=== PATIENT | male | born 2000 | race Caucasian/White ===

== ENCOUNTER 2019-12-15 00:35 | Observation (INO) ==
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
[2019-12-15 01:03] LABS: ALANINE AMINOTRANSFERASE 24 Units/L (12-78); ALBUMIN 4.3 g/dL (3.4-5.0); ALKALINE PHOSPHATASE 90 Units/L (46-116); ASPARTATE AMINO TRANSFERASE 30 Units/L (15-37); BASOPHILS % (AUTO) 0.7 % (0.2-1.0); BLOOD ALCOHOL 140 mg/dL (0-19.9); BLOOD UREA NITROGEN 10 mg/dL (7-18); CALCIUM 9.3 mg/dL (8.5-10.1); CARBON DIOXIDE 28.7 mmol/L (21-32); CHLORIDE 103 mmol/L (98-107); CREATININE 1.48 mg/dL (0.70-1.30); EOSINOPHILS # (AUTO) 0.2 x10^3/uL (0.0-0.2); EOSINOPHILS % (AUTO) 2.8 % (0.9-2.9); HEMATOCRIT 45.6 % (42.0-54.0); HEMOGLOBIN 15.4 g/dL (13.5-18.0); LYMPHOCYTES % (AUTO) 31.6 % (21.0-51.0); MEAN CORPUSCULAR HEMOGLOBIN 32.2 pg (27.0-34.0); MEAN CORPUSCULAR HGB CONC 33.8 g/dL (33.0-35.0); MEAN CORPUSCULAR VOLUME 95.2 fL (80.0-100.0); MEAN PLATELET VOLUME 8.9 fL (7.4-11.0); MONOCYTES # (AUTO) 0.5 x10^3/uL (0.3-0.8); MONOCYTES % (AUTO) 7.4 % (0.0-13.0); NEUTROPHILS # (AUTO) 3.7 x10^3/uL (2.2-4.8); NEUTROPHILS % (AUTO) 57.5 % (42.0-75.0); PLATELET COUNT 265 X10^3/uL (150.0-450.0); RED BLOOD COUNT 4.79 X10^6/uL (4.7-6.0); SODIUM 143 mmol/L (136-145); TOTAL PROTEIN 8.7 g/dL (6.4-8.2); WHITE BLOOD COUNT 6.5 X10^3/uL (3.6-10.0); eGFR NON BLACK RACES > 60 (>60)
[2019-12-15 01:10] LABS: SALICYLATE 4.8 mg/dL (2.8-20)
[2019-12-15] MEDS ORDERED: ANCEF VIAL 1 GRAM IVP ONE (01:13)
[2019-12-15] MEDS ORDERED: ADACEL or BOOSTRIX TDaP VACCINE IM ONE ×2 (01:18→01:36)
[2019-12-15] MEDS ORDERED: ANCEF VIAL 1 GRAM ONE ×2 (01:36→09:02)
[2019-12-15] MEDS ORDERED: NS 100 ML IV 100 ML IV ONE (01:40)
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
[2019-12-15] MEDS ORDERED: NS 1000 ML 1,000 ML IV SCH ×2 (03:00→04:00)
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
[2019-12-15] MEDS ORDERED: ZOFRAN INJ 4 MG VIAL IVP ONE (03:04)
[2019-12-15] MEDS ORDERED: MORPHINE SULFATE INJ 2 MG INJ IVP ONE (03:04)
[2019-12-15] MEDS ORDERED: MORPHINE SULFATE INJ 2 MG INJ ONE (03:05)
[2019-12-15] MEDS ORDERED: ZOFRAN INJ 4 MG VIAL ONE (03:13)
[2019-12-15] MEDS ORDERED: ATIVAN INJ 2 MG VIAL IVP PRN (03:58)
[2019-12-15] MEDS ORDERED: ZOFRAN INJ 4 MG VIAL IVP PRN (03:58)
[2019-12-15] MEDS ORDERED: MORPHINE SULFATE INJ 2 MG INJ IVP PRN (03:58)
[2019-12-15 05:43] VITALS: BMI 19.9
[2019-12-15] MEDS ORDERED: ANCEF VIAL 1 GRAM IVP SCH (08:00)
[2019-12-15] MEDS ORDERED: HYDROGEN PEROXIDE 3% EXT ONE (08:41)
[2019-12-15] MEDS ORDERED: NS 100 ML IV + SPIKE MINIBAG* 100 ML IV ONE (09:04)
[2019-12-15 13:32] VITALS: BP 152/90
== END 2019-12-15 14:22 | disposition home or self-care (01) ==
LOC: OBS 00:37 → ER 00:37 → OBS 03:55
PROVIDERS: ADMIT Surgery; ATTEND Surgery
DX: F10.129 Alcohol abuse with intoxication, unspecified; F19.90 Other psychoactive substance use, unspecified, uncomplicated; S41.001A Unspecified open wound of right shoulder, initial encounter; Y92.9 Unspecified place or not applicable; W34.00XA Accidental discharge from unspecified firearms or gun, initial encounter; R45.851 Suicidal ideations; E87.6 Hypokalemia; F14.90 Cocaine use, unspecified, uncomplicated; F12.90 Cannabis use, unspecified, uncomplicated; F32.2 Major depressive disorder, single episode, severe without psychotic features; Y90.0 Blood alcohol level of less than 20 mg/100 ml